=== PATIENT | female | born 1950 | race Caucasian/White ===

== ENCOUNTER → 2017-06-14 | Outpatient (CLI) | payer BC ==
[~2017-06-14] MED LIST: ACTOS30 MG PO; CALCIUM 600 MG1 EACH PO; CENTRUM SILVER1 EAC3 PO; CLARITIN,ALAVAR10 MG PO; COREG12.5 M1 PO; HYDROCODON-ACE1 EAC7 PO; HYGROTON50 MG PO; KLOR-CON M2020 MEQ PO; LO-DOSE ASPIRIN81 M1 PO; LOVENOX40 MG/0.4 SC; PRINIVIL20 MG PO; PROAIR RESPICL90 MCG IH; PROZAC40 MG PO; SANCTURA20 MG PO; ULTRAM50 MG PO; ZOCOR80 MG PO
== END | disposition home or self-care (01) ==
LOC: NUC 09:24
DX: T84.53XA Infection and inflammatory reaction due to internal right knee prosthesis, initial encounter (principal); M17.12 Unilateral primary osteoarthritis, left knee; M16.11 Unilateral primary osteoarthritis, right hip; M19.072 Primary osteoarthritis, left ankle and foot; M19.071 Primary osteoarthritis, right ankle and foot; M47.892 Other spondylosis, cervical region; R93.7 Abnormal findings on diagnostic imaging of other parts of musculoskeletal system
CPT/HCPCS: 78315; A9503

== ENCOUNTER → 2017-06-21 | Outpatient (CLI) | payer BC | END | disposition home or self-care (01) | LOC: NUC 06:19 | PROC: C7101ZZ Planar Nuclear Medicine Imaging of Bone Marrow using Technetium 99m (Tc-99m) (ICD-10-PCS; principal; 2017-06-21) | PROC: C71 Nuclear Medicine, Lymphatic and Hematologic System, Planar Nuclear Medicine Imaging (ICD-10-PCS; principal; 2017-06-21) | DX: T84.84XA Pain due to internal orthopedic prosthetic devices, implants and grafts, initial encounter (principal) | CPT/HCPCS: 78102; 78805; 78999; A9541; A9570 ==

== ENCOUNTER 2017-10-10 22:06 | Inpatient (IN) | payer BC ==
[~2017-10-10] VITALS: Ht 157.5 cm; Wt 158.3 kg
[~2017-10-10 22:06] MED LIST changes: +AZO BLADDER CO300 MG PO; +LO-DOSE ASPIRIN81 M2 PO
[2017-10-11 06:06] VITALS: BP 118/54
[2017-10-11 11:21] LABS: HEMATOCRIT 32.2 % (36.0-46.0); HEMOGLOBIN 10.1 G/DL (11.9-15.5); MCH 28.9 PG (29.0-34.0); MCHC 31.4 G/DL (30.0-36.0); PLATELET COUNT 250 K/uL (156-360); RBC DIS.WIDTH-CV 16.4 % (11.8-14.6); RBC DIS.WIDTH-SD 55.4 % (39-53); WHITE BLOOD COUNT 6.1 K/uL (4.1-10.2)
[2017-10-11 13:27] VITALS: BP 114/56
[2017-10-11 15:48] VITALS: BP 122/53
[2017-10-11 20:07] VITALS: BP 106/84
[2017-10-12 00:18] VITALS: BP 97/55
[2017-10-12 04:20] VITALS: BP 124/853
[2017-10-12 05:49] LABS: HEMATOCRIT 28.9 % (36.0-46.0); HEMOGLOBIN 9.1 G/DL (11.9-15.5); MCV 90.9 FL (83-99)
[2017-10-12 06:31] LABS: CHLORIDE 103 MEQ/L (99-109); CREATININE 0.8 MG/DL (0.6-1.3); GFR ESTIMATE (CALCULATED) > 59 mL/min/; GLUCOSE 103 mg/dL (70-99); POTASSIUM 4.6 MEQ/L (3.7-5.4); SODIUM 135 MEQ/L (136-147); UREA NITROGEN (BUN) 20 mg/dL (9-23)
[2017-10-12 07:49] VITALS: BP 119/56
[2017-10-12 12:28] VITALS: BP 141/62
[2017-10-12 15:54] VITALS: BP 154/65
[2017-10-12 20:41] VITALS: BP 170/75
[2017-10-13] VITALS (7 sets, daily range): BP systolic 114–137; BP diastolic 55–65
[2017-10-13 05:22] LABS: HEMATOCRIT 31.3 % (36.0-46.0); HEMOGLOBIN 9.7 G/DL (11.9-15.5); MCV 90.2 FL (83-99)
[2017-10-13] MEDS ORDERED: DOCUSATE SODIU100 MG PO (08:31)
[2017-10-13] MEDS ORDERED: LOVENOX60 MG/0.6 SC ×3 (08:32→08:53)
[2017-10-13] MEDS ORDERED: ENDOCET 5-3251 EACH PO (08:32)
[2017-10-14 08:11] VITALS: BP 136/61
[2017-10-14 16:06] VITALS: BP 109/58
== END 2017-10-14 16:50 | DRG 464 ==
LOC: ENRESERV 22:06 → 3EAST 10-11 05:23 → 2SOUTH 10-11 05:23 → 3WEST 10-11 05:23 → 2SOUTH 10-11 14:36 → 3WEST 10-13 07:24 → ENRESERV 10-13 07:27 → 3EAST 10-13 19:25
PROVIDERS: Orthopaedic Surgery
DX: T84.53XA Infection and inflammatory reaction due to internal right knee prosthesis, initial encounter (principal); Z68.44 Body mass index [BMI] 60.0-69.9, adult; T84.84XA Pain due to internal orthopedic prosthetic devices, implants and grafts, initial encounter; Y83.1 Surgical operation with implant of artificial internal device as the cause of abnormal reaction of the patient, or of later complication, without mention of misadventure at the time of the procedure; E66.01 Morbid (severe) obesity due to excess calories; G47.33 Obstructive sleep apnea (adult) (pediatric); I10 Essential (primary) hypertension; E11.9 Type 2 diabetes mellitus without complications; Z82.49 Family history of ischemic heart disease and other diseases of the circulatory system; Z80.49 Family history of malignant neoplasm of other genital organs; E78.00 Pure hypercholesterolemia, unspecified; J44.9 Chronic obstructive pulmonary disease, unspecified; Z87.891 Personal history of nicotine dependence
CPT/HCPCS: 71045; 73560; 76937; 80048; 80202; 82948; 85014; 85018; 85027; 86140; 87070; 87075; 87077; 87102; 87205; 88305; 88331; 88332; 94660; 97530 GO; 97530 GP; C1713; J0131; J0330; J0690; J0744; J1650; J2250; J2543; J2795; J3010; J3370; J7040; J7050; S0020

== ENCOUNTER 2017-11-06 16:05 | Observation (INO) | payer BC ==
[~2017-11-06] VITALS: Ht 157.5 cm; Wt 143.5 kg
[~2017-11-06 16:05] MED LIST changes: +DOCUSATE SODIU100 MG PO; +ENDOCET 5-3251 EACH PO; +LOVENOX60 MG/0.6 SC
[2017-11-06 16:57] LABS: HEMOGLOBIN 10.1 G/DL (11.9-15.5); MCHC 32.6 G/DL (30.0-36.0); MCV 85.9 FL (83-99); RBC DIS.WIDTH-CV 15.9 % (11.8-14.6); RED BLOOD COUNT 3.61 M/uL (3.80-5.20)
[2017-11-06 17:02] LABS: PLATELET COUNT 201 K/uL (156-360)
[2017-11-06 17:05] LABS: ALBUMIN 3.3 g/dL (3.2-4.8); CHLORIDE 105 mEq/L (99-109); POTASSIUM 4.6 mEq/L (3.7-5.4)
[2017-11-06 17:07] LABS: GLUCOSE 94 mg/dL (70-99); TOTAL PROTEIN 6.4 g/dL (6.4-8.3)
[2017-11-06 17:09] LABS: TOTAL BILIRUBIN 0.7 mg/dL (0.0-1.0)
[2017-11-06 17:11] LABS: ALKALINE PHOSPHATASE 75 IU/L (3-129)
[2017-11-06 17:13] LABS: AST (GOT) 14 IU/L (2-34)
[2017-11-06 17:14] LABS: ALT (GPT) 11 IU/L (3-49)
[2017-11-06 17:25] LABS: GFR ESTIMATE (CALCULATED) 27 mL/min/; UREA NITROGEN (BUN) 27 mg/dL (9-23)
[2017-11-06 17:26] LABS: SODIUM 135 mEq/L (136-147)
[2017-11-06] MEDS ORDERED: CIPRO500 MG PO (19:40)
[2017-11-06] MEDS ORDERED: ADVIL,NUPRIN,M200 MG PO (19:41)
[2017-11-06] MEDS ORDERED: PAIN & FEVER500 MG PO (19:42)
[2017-11-06 20:49] VITALS: BP 133/62
[2017-11-06 23:02] LABS: APPEARANCE CLEAR ((CLEAR)); BILIRUBIN NEGATIVE; BLOOD NEGATIVE; COLOR STRAW ((YELLOW)); GLUCOSE (STRIP) NEGATIVE; KETONES NEGATIVE; LEUKOCYTES NEGATIVE; NITRITE NEGATIVE; PROTEIN (STRIP) NEGATIVE; SPECIFIC GRAVITY 1.006 (1.000-1.030); UCUL ADDED? NO; UROBILINOGEN 0.2 MG/DL (0.2-1.0)
[2017-11-07] VITALS: BP 125/57
[2017-11-07 04:35] VITALS: BP 121/57
[2017-11-07 05:33] LABS: HEMATOCRIT 30.9 % (36.0-46.0); HEMOGLOBIN 9.7 G/DL (11.9-15.5); MCHC 31.4 G/DL (30.0-36.0); MCV 86.1 FL (83-99); PLATELET COUNT 218 K/uL (156-360); RBC DIS.WIDTH-CV 15.9 % (11.8-14.6); RBC DIS.WIDTH-SD 50.7 % (39-53); RED BLOOD COUNT 3.59 M/uL (3.80-5.20); WHITE BLOOD COUNT 6.8 K/uL (4.1-10.2)
[2017-11-07 05:49] LABS: CHLORIDE 106 MEQ/L (99-109); CREATININE 1.6 MG/DL (0.6-1.3); GFR ESTIMATE (CALCULATED) 34 mL/min/; GLUCOSE 93 mg/dL (70-99); SODIUM 136 MEQ/L (136-147); UREA NITROGEN (BUN) 24 mg/dL (9-23)
[2017-11-07 08:15] VITALS: BP 133/61
[2017-11-07 11:26] VITALS: BP 130/56
[2017-11-07] MEDS ORDERED: PREDNISONE20 MG PO (14:54)
[2017-11-07 15:27] VITALS: BP 172/74
== END 2017-11-07 18:04 | disposition home or self-care (01) ==
LOC: EME 16:05 → 4SOUTH 18:50 → EDOF 18:50 → ENRESERV 18:51 → 4SOUTH 20:22
PROVIDERS: Hospitalist; Nurse Practitioner Family
DX: R21 Rash and other nonspecific skin eruption (principal); L29.9 Pruritus, unspecified; T36.8X5A Adverse effect of other systemic antibiotics, initial encounter; T84.53XA Infection and inflammatory reaction due to internal right knee prosthesis, initial encounter; M00.261 Other streptococcal arthritis, right knee; B95.4 Other streptococcus as the cause of diseases classified elsewhere; E66.01 Morbid (severe) obesity due to excess calories; Z68.43 Body mass index [BMI] 50.0-59.9, adult; N28.9 Disorder of kidney and ureter, unspecified; E11.9 Type 2 diabetes mellitus without complications; I10 Essential (primary) hypertension; M19.90 Unspecified osteoarthritis, unspecified site; G47.30 Sleep apnea, unspecified; E78.5 Hyperlipidemia, unspecified; J45.909 Unspecified asthma, uncomplicated; Z88.2 Allergy status to sulfonamides; Z88.5 Allergy status to narcotic agent; Z88.8 Allergy status to other drugs, medicaments and biological substances; Z79.82 Long term (current) use of aspirin; Z82.49 Family history of ischemic heart disease and other diseases of the circulatory system; Z80.49 Family history of malignant neoplasm of other genital organs
CPT/HCPCS: 71045; 80048; 80053; 81003; 82948; 83605; 85027; 87040; 94660; 99281; 99284; G0378; J0295; J1200; J1644; J2930; J7030; J7050